=== PATIENT | female | born 1975 | race Hispanic/Latino ===

== ENCOUNTER 2017-10-08 19:23 | Emergency (ER) | payer SELFPAY ==
[2017-10-08 20:16] VITALS: BMI 31.9
--- NOTE | 2017-10-08 20:27 | ED PDOC ---
Arrival/HPI - General Chief Complaint: Upper Extremity Problem/Injury Time Seen by Provider: 10/08/17 20:20 Historian: Patient - History of Present Illness Narrative History of Present Illness (Text): 10/08/17 20:23 42yo female present to Emergency department with complaint of left elbow pain radiating to her upper arm and forearm. She states she fell and landed on her left elbow an hour ago. Notes sharp pain to her elbow. she notes numbness to her left forearm. She did not take any medication. Notes that the fall is mechanical. Denies focal weakness, hitting head anywhere, LOC, any other complaint. Past Medical History - Provider Review Nursing Documentation Reviewed: Yes - Infectious Disease Hx of Infectious Diseases: None - Tetanus Immunization Tetanus Immunization: >10 years Ago - Cardiac Hx Cardiac Disorders: No - Pulmonary Hx Respiratory Disorders: No Other/Comment: hx blood clots - Neurological Hx Neurological Disorder: No - HEENT Hx HEENT Disorder: No - Renal Hx Renal Failure: Yes (Left kidney only) - Endocrine/Metabolic Hx Endocrine Disorders: No - Hematological/Oncological Hx Blood Disorders: Yes Hx Cancer: Yes (skin and breast) - Integumentary Hx Dermatological Disorder: Yes Other/Comment: LE edema, skin Cancer - Musculoskeletal/Rheumatological Hx Musculoskeletal Disorders: No - Gastrointestinal Hx Gastrointestinal Disorders: No - Genitourinary/Gynecological Hx Genitourinary Disorders: Yes Other/Comment: 5 ectopic pregnancies, - Psychiatric Hx Anxiety: Yes Hx Substance Use: No - Surgical History Hx Mastectomy: Yes (DOUBLE) Hx Orthopedic Surgery: Yes (B/L) Hx Tubal Ligation: Yes Other/Comment: double mastectomy with reconstruction and lymphnode removal - Anesthesia Hx Anesthesia: Yes Hx Anesthesia Reactions: No - Suicidal Assessment Feels Threatened In Home Enviroment: No Family/Social History - Physician Review Nursing Documentation Reviewed: Yes Family/Social History: Unknown Family HX Smoking Status: Heavy Smoker > 10 Cigarettes Daily Hx Alcohol Use: Yes Hx Substance Use: No Hx Substance Use Treatment: No Allergies/Home Meds Allergies/Adverse Reactions: Allergies No Known Allergies Allergy (Verified 10/08/17 20:16) Home Medications: Home Meds Medication Instructions Recorded Confirmed diaZEpam [Valium] 10 mg PO QID PRN 04/19/14 07/09/17 oxyCODONE [oxyCONTIN] 30 mg PO Q6 PRN 04/19/14 07/09/17 Furosemide [Lasix] 2 tab PO BID 10/23/16 07/09/17 Aspirin [Ecotrin] 81 mg PO DAILY 07/09/17 07/09/17 Phytonadione (Vit K1) [Vitamin K] 100 mcg PO DAILY 07/09/17 07/09/17 Vitamin B Complex [B Complex] 1 each PO DAILY 07/09/17 07/09/17 Review of Systems - Physician Review All systems were reviewed & negative as marked: Yes - Review of Systems Constitutional: Normal Eyes: Normal ENT: Normal Respiratory: Normal Cardiovascular: Normal Gastrointestinal: Normal Genitourinary Female: Normal Musculoskeletal: Arthralgias (LEft arm/elbow/forearm) Skin: Normal Neurological: Normal Endocrine: Normal Hemo/Lymphatic: Normal Psychiatric: Normal Physical Exam Vital Signs Reviewed: Yes Temperature: Afebrile Blood Pressure: Normal Pulse: Regular Respiratory Rate: Normal Appearance: Positive for: Well-Appearing, Non-Toxic, Comfortable Pain Distress: None Mental Status: Positive for: Alert and Oriented X 3 - Systems Exam Head: Present: Atraumatic, Normocephalic Pupils: Present: PERRL Extroacular Muscles: Present: EOMI Conjunctiva: Present: Normal Mouth: Present: Moist Mucous Membranes Neck: Present: Normal Range of Motion Respiratory/Chest: Present: Clear to Auscultation, Good Air Exchange. No: Respiratory Distress, Accessory Muscle Use Cardiovascular: Present: Regular Rate and Rhythm, Normal S1, S2. No: Murmurs Abdomen: Present: Normal Bowel Sounds. No: Tenderness, Distention, Peritoneal Signs Back: Present: Normal Inspection Upper Extremity: Present: NORMAL PULSES, Tenderness (LEft upper arm/elbow and forearm), Neurovascularly Intact. No: Cyanosis, Edema, Normal ROM (Unable to ascess secondary to pain. Arm in a sling), Swelling, Deformity Lower Extremity: Present: Normal Inspection. No: Edema Neurological: Present: GCS=15, CN II-XII Intact, Speech Normal Skin: Present: Warm, Dry, Normal Color. No: Rashes Psychiatric: Present: Alert, Oriented x 3, Normal Insight, Normal Concentration Medical Decision Making ED Course and Treatment: 10/08/17 21:49 PT in Emergency department for stated history. She was NVI . Radial pulse was intact Left arm xray - Negative for acute fracture/dislocation Arm placed on a sling Result DW the pt DC home with ibuprofen and referred to her PMD. - RAD Interpretation Radiology Orders: 10/08/17 20:20 HUMERUS LEFT [RAD] Stat 10/08/17 20:21 ELBOW LEFT 3 VIEWS ROUTINE [RAD] Stat FOREARM LEFT [RAD] Stat - Medication Orders Current Medication Orders: Discontinued Medications Ibuprofen (Motrin Tab) 800 mg PO STAT STA Stop: 10/08/17 20:24 Disposition/Present on Arrival - Present on Arrival Any Indicators Present on Arrival: No History of DVT/PE: No History of Uncontrolled Diabetes: No Urinary Catheter: No History of Decub. Ulcer: No History Surgical Site Infection Following: None - Disposition Have Diagnosis and Disposition been Completed?: Yes Diagnosis: Knee sprain, Arm injury Disposition: HOME/ ROUTINE Disposition Time: 21:50 Patient Plan: Discharge Condition: STABLE Discharge Instructions (ExitCare): Elbow Sprain (ED) Additional Instructions: Follow up with your doctor/Orthopedist Return to Emergency department for any new or worsening symptoms Prescriptions: Ibuprofen [Motrin Tab] 600 mg PO Q6 #20 tab Referrals: PCP,LUIS EDUARDO [Primary Care Provider] - Follow up with primary Wilbert Stallings MD [Staff Provider] - Follow up with primary Forms: [employer] ([place])
[2017-10-08 22:55] VITALS: BP 145/80; PULSE 75; RESP 18; TEMP 98.6; O2SAT 100
--- NOTE | 2017-10-09 08:34 | RAD ---
PROCEDURE: Radiographs of the left humerus. HISTORY: arm pain s/p trauma COMPARISON: None. FINDINGS: BONES: Normal. No fracture or focal lesion. SOFT TISSUES: Normal. OTHER FINDINGS: None. IMPRESSION: Normal radiographs of left humerus.
--- NOTE | 2017-10-09 08:35 | RAD ---
PROCEDURE: Radiographs of the left elbow. HISTORY: elbow pain s/p trauma COMPARISON: No prior. FINDINGS: BONES: Normal. No fracture. JOINTS: Normal. No osteoarthritis. SOFT TISSUES: Normal. JOINT EFFUSION: None. OTHER FINDINGS: None IMPRESSION: Unremarkable radiographs of the left elbow.
--- NOTE | 2017-10-09 08:36 | RAD ---
PROCEDURE: Radiographs of the Left Forearm HISTORY: arm pain s/p trauma COMPARISON: None available. TECHNIQUE: Frontal and lateral views obtained. FINDINGS: BONES: No fracture or destructive lesion. JOINT SPACES: Unremarkable. OTHER FINDINGS: None. IMPRESSION: Unremarkable radiographs of the left forearm.
== END 2017-10-08 22:38 | disposition home or self-care (01) ==
LOC: ED 19:23
DX: S53.402A Unspecified sprain of left elbow, initial encounter (principal); S83.90XA Sprain of unspecified site of unspecified knee, initial encounter; W01.0XXA Fall on same level from slipping, tripping and stumbling without subsequent striking against object, initial encounter; Y92.009 Unspecified place in unspecified non-institutional (private) residence as the place of occurrence of the external cause

== ENCOUNTER 2018-02-06 00:32 | Emergency (ER) | payer SELFPAY ==
[2018-02-06 00:32] VITALS: BMI 31.9
--- NOTE | 2018-02-06 01:02 | ED PDOC ---
Arrival/HPI - General Chief Complaint: Chest Pain Time Seen by Provider: 02/06/18 00:39 Historian: Patient - History of Present Illness Narrative History of Present Illness (Text): 02/06/18 01:01 42 year old female, whose past medical history includes breast CA and ?renal insufficiency secondary to past chemotherapy, presents to the emergency department for evaluation of decreased urinary output for the past 3 days. Patient states she has not been drinking liquids and is nauseous. She states he feel like she is retaining water. This evening, patient also developed "crushing " chest pain prior to arrival to the ER. Patient is currently without chest pain , but still complaining of nausea. Patient denies any fever, chills, shortness of breath, vomiting, diarrhea, back pain, neck pain, headache, dizziness, or any other complaints. Time/Duration: Other (3 days) Symptom Onset: Gradual Symptom Course: Unchanged Activities at Onset: Light Context: Home Past Medical History - Provider Review Nursing Documentation Reviewed: Yes - Infectious Disease Hx of Infectious Diseases: None - Tetanus Immunization Tetanus Immunization: >10 years Ago - Cardiac Hx Cardiac Disorders: No - Pulmonary Hx Respiratory Disorders: No Other/Comment: hx blood clots - Neurological Hx Neurological Disorder: No - HEENT Hx HEENT Disorder: No - Renal Hx Renal Failure: Yes (Left kidney only) Other/Comment: left kidney at 63% - Endocrine/Metabolic Hx Endocrine Disorders: No - Hematological/Oncological Hx Blood Disorders: Yes Hx Cancer: Yes (skin and breast) Other/Comment: dble mastectomy with reconstruction last chemo 2007 - Integumentary Hx Dermatological Disorder: Yes Other/Comment: LE edema, skin Cancer - Musculoskeletal/Rheumatological Hx Musculoskeletal Disorders: No - Gastrointestinal Hx Gastrointestinal Disorders: No - Genitourinary/Gynecological Hx Genitourinary Disorders: Yes Other/Comment: 5 ectopic pregnancies, - Psychiatric Hx Anxiety: Yes Hx Depression: Yes Hx Substance Use: No - Surgical History Hx Mastectomy: Yes (DOUBLE) Hx Orthopedic Surgery: Yes (B/L) Hx Tubal Ligation: Yes Other/Comment: double mastectomy with reconstruction and lymphnode removal 6 ectopic - Anesthesia Hx Anesthesia: Yes Hx Anesthesia Reactions: No - Suicidal Assessment Feels Threatened In Home Enviroment: No Family/Social History - Physician Review Nursing Documentation Reviewed: Yes Family/Social History: No Known Family HX Smoking Status: Heavy Smoker > 10 Cigarettes Daily Hx Alcohol Use: No Hx Substance Use: No Hx Substance Use Treatment: No Allergies/Home Meds Allergies/Adverse Reactions: Allergies No Known Allergies Allergy (Verified 02/06/18 00:38) Home Medications: Home Meds Medication Instructions Recorded Confirmed No Known Home Med 02/06/18 02/06/18 Review of Systems - Physician Review All systems were reviewed & negative as marked: Yes - Review of Systems Constitutional: absent: Fevers, Other (Chills) Respiratory: absent: SOB Cardiovascular: Chest Pain Gastrointestinal: Nausea. absent: Diarrhea, Vomiting Genitourinary Female: Urine Output Changes (decreased urinary output) Musculoskeletal: absent: Back Pain, Neck Pain Neurological: absent: Headache, Dizziness Physical Exam Vital Signs Reviewed: Yes Vital Signs Temp Pulse Resp BP Pulse Ox 02/06/18 01:23 99.2 F 88 18 119/81 97 Temperature: Afebrile Blood Pressure: Normal Pulse: Regular Respiratory Rate: Normal Appearance: Positive for: Well-Appearing, Non-Toxic, Comfortable Pain Distress: None Mental Status: Positive for: Alert and Oriented X 3 - Systems Exam Head: Present: Atraumatic, Normocephalic Pupils: Present: PERRL Extroacular Muscles: Present: EOMI Conjunctiva: Present: Normal Mouth: Present: Moist Mucous Membranes Neck: Present: Normal Range of Motion Respiratory/Chest: Present: Clear to Auscultation, Good Air Exchange. No: Respiratory Distress, Accessory Muscle Use Cardiovascular: Present: Regular Rate and Rhythm, Normal S1, S2. No: Murmurs Abdomen: No: Tenderness, Distention, Peritoneal Signs Back: Present: Normal Inspection Upper Extremity: Present: Normal Inspection. No: Cyanosis, Edema Lower Extremity: Present: Normal Inspection. No: Edema Neurological: Present: GCS=15, CN II-XII Intact, Speech Normal Skin: Present: Warm, Dry, Normal Color. No: Rashes Psychiatric: Present: Alert, Oriented x 3, Normal Insight, Normal Concentration Medical Decision Making ED Course and Treatment: 02/06/18 01:02 Impression: 42 year old female presents complaining of decreased urinary output for the past 3 days associated with nausea and sudden chest pain prior to arrival. Physical Exam benign. Plan: -- EKG -- Labs -- Chest X-ray -- Pepcid, IV Fluids, Zofran Inj -- Urinary Catheter Insertion -- Reassess and disposition Progress Notes: EKG shows NSR at 87 BPM with sinus arrhythmia. Non-specific ST/T changes. Interpreted by me. 02/06/18 03:14 CXR Impression: As read by me, no acute process. 02/06/18 03:25 Case discussed with Senior Project Accountant and Dr. Danilo Mahoney who is aware and agrees with the plan. Accepts patient into hospitalist service. - Lab Interpretations Lab Results: 02/06/18 01:15 02/06/18 01:15 Lab Results 02/06/18 01:15: Beta HCG, Quant < 2.39 02/06/18 01:15: WBC 9.5, RBC 5.15, Hgb 14.5, Hct 42.1, MCV 81.7, MCH 28.2, MCHC 34.4, RDW 14.0, Plt Count 271, MPV 10.9 02/06/18 01:15: PT 12.8 H, INR 1.12 H, APTT 33.3 02/06/18 01:15: Sodium 145, Potassium 3.5 L, Chloride 109 H, Carbon Dioxide 24, Anion Gap 16, BUN 8, Creatinine 0.6 L, Est GFR ( Amer) > 60, Est GFR (Non -Af Amer) > 60, Random Glucose 99, Calcium 10.1, Total Bilirubin 0.8, AST 20, ALT 19, Alkaline Phosphatase 85, Lactate Dehydrogenase 343, Total Creatine Kinase 20 L, Troponin I < 0.01, NT-Pro-B Natriuret Pep 14.2, Total Protein 7.4, Albumin 4.3, Globulin 3.1, Albumin/Globulin Ratio 1.4, Lipase 37 I have reviewed the lab results: Yes - RAD Interpretation Radiology Orders: 02/06/18 01:01 CHEST PORTABLE [RAD] Stat - EKG Interpretation Interpreted by ED Physician: Yes Type: 12 lead EKG - Medication Orders Current Medication Orders: Famotidine (Pepcid) 40 mg PO HS ENRIQUE Sodium Chloride (Sodium Chloride 0.9%) 1,000 mls @ 100 mls/hr IV .Q10H ENRIQUE Last Admin: 02/06/18 01:22 Dose: 100 mls/hr eMAR Start Stop Document 02/06/18 01:22 CNR (Rec: 02/06/18 01:[address] [facility] [place]-[id number]) Intravenous Solution Start Date 02/06/18 Start Time 01:22 Discontinued Medications Famotidine (Pepcid) 20 mg IVP STAT STA Stop: 02/06/18 01:03 Last Admin: 02/06/18 01:21 Dose: 20 mg IVP Administration Document 02/06/18 01:21 CNR (Rec: 02/06/18 01:21 CNR [id number]) Charges for Administration # of IVP Administrations 1 Sodium Chloride (Sodium Chloride 0.9%) 500 mls @ 500 mls/hr IV .Q1H STA Stop: 02/06/18 04:16 Last Admin: 02/06/18 03:24 Dose: 500 mls/hr eMAR Start Stop Document 02/06/18 03:24 CNR (Rec: 02/06/18 03:24 CNR [id number]) Intravenous Solution Start Date 02/06/18 Start Time 03:24 Ondansetron HCl (Zofran Inj) 4 mg IVP ONCE ONE Stop: 02/06/18 01:03 Last Admin: 02/06/18 01:22 Dose: 4 mg IVP Administration Document 02/06/18 01:22 CNR (Rec: 02/06/18 01:22 CNR [id number]) Charges for Administration # of IVP Administrations 1 Potassium Chloride (K-Dur 20 Meq Er Tab) 20 meq PO ONCE ONE Stop: 02/06/18 04:11 - Scribe Statement The provider has reviewed the documentation as recorded by the Lynn Infante Provider Scribe Attestation: All medical record entries made by the Lynn were at my direction and personally dictated by me. I have reviewed the chart and agree that the record accurately reflects my personal performance of the history, physical exam, medical decision making, and the department course for this patient. I have also personally directed, reviewed, and agree with the discharge instructions and disposition. Disposition/Present on Arrival - Present on Arrival Any Indicators Present on Arrival: No History of DVT/PE: No History of Uncontrolled Diabetes: No Urinary Catheter: No History of Decub. Ulcer: No History Surgical Site Infection Following: None - Disposition Have Diagnosis and Disposition been Completed?: Yes Diagnosis: Chest pain Disposition: HOSPITALIZED Disposition Time: 03:53 Patient Plan: Observation Patient Problems: Current Active Problems Problem Status Onset Chest pain Acute Condition: STABLE
[2018-02-06] MEDS ORDERED: Sodium Chloride 0.9% 1,000 ML IV SCH (01:15)
[2018-02-06 01:24] VITALS: RESP 18
[2018-02-06 01:32] LABS: HEMOGLOBIN 14.5 g/dL (12.0-16.0); MEAN CELL VOLUME 81.7 fl (80.0-105.0); MEAN CORPUSCULAR HEMOGLOBIN 28.2 pg (25.0-35.0); MEAN CORPUSCULAR HGB CONC 34.4 g/dl (31.0-37.0); MEAN PLATELET VOLUME 10.9 fl (7.0-11.0); RBC 5.15 10^6/uL (3.5-6.1); WHITE BLOOD COUNT 9.5 10^3/ul (4.5-11.0)
[2018-02-06 01:38] LABS: INR 1.12 (0.93-1.08); PARTIAL THROMBOPLASTIN TIME 33.3 Seconds (25.1-36.5); PROTHROMBIN TIME 12.8 SECONDS (9.4-12.5)
[2018-02-06 01:41] LABS: ALB/GLOB RATIO 1.4 (1.1-1.8); ALBUMIN 4.3 g/dL (3.0-4.8); ALT/SGPT 19 U/L (7-56); AST/SGOT 20 U/L (14-36); BLOOD UREA NITROGEN 8 mg/dL (7-21); CALCIUM 10.1 mg/dL (8.4-10.5); GFR AFRICAN-AMERICAN > 60; GFR NON-AFRICAN AMERICAN > 60; LIPASE 37 U/L (23-300)
[2018-02-06 01:53] LABS: B-TYPE NATRIURETIC PEPTIDE 14.2 pg/mL (0-450); TROPONIN I < 0.01 ng/mL
[2018-02-06] MEDS ORDERED: Sodium Chloride 0.9% 500 ML IV STA ×2 (03:17→04:30)
[2018-02-06] MEDS ORDERED: Potassium Chloride 20 mEq ER Tab PO ONE (04:10)
--- NOTE | 2018-02-06 06:15 | CP.PCM.HP ---
History of Present Illness - History of Present Illness History of Present Illness: CC: Anuria and chest discomfort HPI: 42 year old female with past medical history of breast cancer s/p bilateral mastectomy with reconstructive surgery, acute renal failure requiring temporary dialysis secondary to chemotherapy who presents complaining of minimal to no urinary output for the past 3 days. Patient reports that she has been drinking limited liquids over the time period. She denies any difficulty starting or stopping her stream, chills, fever, abdominal/suprapubic pain, confusion, shortness of breath. Patient reports having prior episodes of anuria lasting 1 to 2 days. Patient also reports chest discomfort prior to and on arrival to ED. She denied radiation of pain, sweating, nausea, vomiting, or taking any medication for relief of her symptoms. Along with her chest pain patient indicates she had 3+ edema in her lower extremities that has since subsided. Patient is noted to be resting comfortably in bed at time of interview. PMH: Breast CA hx, PTSD, Anxiety PSH: B/L breast mastectomy, Breast reconstructive surgery SOCHX: Tobacco: Denies, ETOH: Denies, ID: Denies ALL: NKDA Meds: HCTZ in past but not taken since 11/2017 PMD: none Urology: Carlos Hernandez Urologist: Denies Present on Admission - Present on Admission Any Indicators Present on Admission: No Review of Systems - Review of Systems All systems: reviewed and no additional remarkable complaints except (as mentioned in hpi) Past Patient History - Infectious Disease Hx of Infectious Diseases: None - Tetanus Immunizations Tetanus Immunization: >10 years Ago - Past Social History Smoking Status: Heavy Smoker > 10 Cigarettes Daily Alcohol: None Drugs: Denies - CARDIAC Hx Cardiac Disorders: No - PULMONARY Hx Respiratory Disorders: No Other/Comment: hx blood clots - NEUROLOGICAL Hx Neurological Disorder: No - HEENT Hx HEENT Problems: No - RENAL Hx Renal Failure: Yes (Left kidney only) Other/Comment: left kidney at 63% - ENDOCRINE/METABOLIC Hx Endocrine Disorders: No - HEMATOLOGICAL/ONCOLOGICAL Hx Blood Disorders: Yes Hx Cancer: Yes (skin and breast) Other/Comment: dble mastectomy with reconstruction last chemo 2007 - INTEGUMENTARY Hx Dermatological Problems: Yes Other/Comment: LE edema, skin Cancer - MUSCULOSKELETAL/RHEUMATOLOGICAL Hx Musculoskeletal Disorders: No - GASTROINTESTINAL Hx Gastrointestinal Disorders: No - GENITOURINARY/GYNECOLOGICAL Hx Genitourinary Disorders: Yes Other/Comment: 5 ectopic pregnancies, - PSYCHIATRIC Hx Anxiety: Yes Hx Depression: Yes Hx Substance Use: No - SURGICAL HISTORY Hx Mastectomy: Yes (DOUBLE) Hx Orthopedic Surgery: Yes (B/L) Hx Tubal Ligation: Yes Other/Comment: double mastectomy with reconstruction and lymphnode removal 6 ectopic - ANESTHESIA Hx Anesthesia: Yes Hx Anesthesia Reactions: No Meds Allergies/Adverse Reactions: Allergies Allergy/AdvReac Type Severity Reaction Status Date / Time No Known Allergies Allergy Verified 02/06/18 00:38 Physical Exam - Constitutional Appears: Non-toxic - Head Exam Head Exam: ATRAUMATIC, NORMAL INSPECTION, NORMOCEPHALIC - Eye Exam Eye Exam: EOMI, PERRL - ENT Exam ENT Exam: Mucous Membranes Moist - Neck Exam Neck exam: Positive for: Full Rom - Respiratory Exam Respiratory Exam: Clear to Auscultation Bilateral, NORMAL BREATHING PATTERN. absent: Rhonchi, Wheezes - Cardiovascular Exam Cardiovascular Exam: REGULAR RHYTHM, +S1, +S2 - GI/Abdominal Exam GI & Abdominal Exam: Normal Bowel Sounds, Soft. absent: Firm, Guarding, Rigid, Tenderness - Extremities Exam Extremities exam: Positive for: normal capillary refill, pedal edema (1+ b/l). Negative for: calf tenderness, tenderness - Back Exam Back exam: absent: CVA tenderness (L), CVA tenderness (R) - Neurological Exam Neurological exam: Alert, CN II-XII Intact, Normal Gait, Oriented x3 - Psychiatric Exam Psychiatric exam: Normal Affect, Normal Mood - Skin Skin Exam: Dry, Warm Results - Vital Signs Recent Vital Signs: Last Vital Signs Temp 99.2 F 02/06/18 01:23 Pulse 88 02/06/18 01:23 Resp 18 02/06/18 01:23 BP 119/81 02/06/18 01:23 Pulse Ox 97 02/06/18 01:23 - Labs Result Diagrams: 02/06/18 01:15 02/06/18 01:15 Labs: Laboratory Results - last 24 hr 02/06/18 02/06/18 02/06/18 01:15 01:15 01:15 WBC 9.5 RBC 5.15 Hgb 14.5 Hct 42.1 MCV 81.7 MCH 28.2 MCHC 34.4 RDW 14.0 Plt Count 271 MPV 10.9 PT 12.8 H INR 1.12 H APTT 33.3 Sodium 145 Potassium 3.5 L Chloride 109 H Carbon Dioxide 24 Anion Gap 16 BUN 8 Creatinine 0.6 L Est GFR ( Amer) > 60 Est GFR (Non-Af Amer) > 60 Random Glucose 99 Calcium 10.1 Total Bilirubin 0.8 AST 20 ALT 19 Alkaline Phosphatase 85 Lactate Dehydrogenase 343 Total Creatine Kinase 20 L Troponin I < 0.01 NT-Pro-B Natriuret Pep 14.2 Total Protein 7.4 Albumin 4.3 Globulin 3.1 Albumin/Globulin Ratio 1.4 Lipase 37 Beta HCG, Quant 02/06/18 01:15 WBC RBC Hgb Hct MCV MCH MCHC RDW Plt Count MPV PT INR APTT Sodium Potassium Chloride Carbon Dioxide Anion Gap BUN Creatinine Est GFR ( Amer) Est GFR (Non-Af Amer) Random Glucose Calcium Total Bilirubin AST ALT Alkaline Phosphatase Lactate Dehydrogenase Total Creatine Kinase Troponin I NT-Pro-B Natriuret Pep Total Protein Albumin Globulin Albumin/Globulin Ratio Lipase Beta HCG, Quant < 2.39 Assessment & Plan - Assessment and Plan (Free Text) Assessment: 42 year old female with past medical history of breast cancer s/p bilateral mastectomy with reconstructive surgery, acute renal failure requiring temporary dialysis secondary to chemotherapy who presents complaining of minimal to no urinary output for the past 3 days. Patient to be admitted for chest pain r/o acs and anuria evaluation. Plan: Anuria - Bladder scan showing 230mL - Renal function stable - Pt received 1.5 Liter in ED - Jones catheter inserted with no urinary output - UA, Urine culture - Continue with fluid hydration - Consider diuretic, reinsertion of jones catheter Chest Pain r/o ACS - initial troponin negative - Trend trop - EKG NSR DVT/ GI ppx - Protonix - Heparin Case and plan discussed with attending - Date & Time Date: 02/06/18 Time: 06:13
--- NOTE | 2018-02-06 08:22 | CP.PCM.PN ---
<Wilma Vallecillo - Last Filed: 02/06/18 08:17> Subjective - Date & Time of Evaluation Date of Evaluation: 02/06/18 Time of Evaluation: 08:17 - Subjective Subjective: PGY-[address] Wong CC: AMA S: Pt was frustrated no urine despite fluid and wanted to leave medical advice. She state she doesn't have primary care doctor. O: AAOx3 Gen: Anxious jones intact, no urine output A/P: AMA - Explained that labs and EKG are normal. Pt was not satisfied, wanted an answer immediately for why no urine output. No willing to wait for an answer/ more testings. Risk and benefit of staying vs AMA discussed, also noted in AMA form. Pt understood. Signed AMA paper. - Given labs and a copy of EKG to patient - Given [facility] info and follow up outpatient Objective - Vital Signs/Intake and Output Vital Signs (last 24 hours): Temp Pulse Resp BP Pulse Ox 99.2 F 88 18 119/81 97 02/06/18 01:23 02/06/18 01:23 02/06/18 01:23 02/06/18 01:23 02/06/18 01:23 - Medications Medications: Current Medications Famotidine (Pepcid) 40 mg PO HS ENRIQUE Sodium Chloride (Sodium Chloride 0.9%) 1,000 mls @ 100 mls/hr IV .Q10H ENRIQUE Last Admin: 02/06/18 01:22 Dose: 100 mls/hr - Labs Labs: PT 12.8 SECONDS (9.4-12.5) H 02/06/18 01:15 INR 1.12 (0.93-1.08) H 02/06/18 01:15 APTT 33.3 Seconds (25.1-36.5) 02/06/18 01:15 <Radha Wong - Last Filed: 02/06/18 17:03> Objective - Vital Signs/Intake and Output Vital Signs (last 24 hours): Temp Pulse Resp BP Pulse Ox 98.6 F 78 18 138/88 98 02/06/18 08:48 02/06/18 08:48 02/06/18 08:48 02/06/18 08:48 02/06/18 08:48 - Labs Labs: 02/06/18 01:15 02/06/18 01:15 PT 12.8 SECONDS (9.4-12.5) H 02/06/18 01:15 INR 1.12 (0.93-1.08) H 02/06/18 01:15 APTT 33.3 Seconds (25.1-36.5) 02/06/18 01:15 Attending/Attestation - Attestation I have personally seen and examined this patient.: No I have fully participated in the care of the patient.: No I have reviewed all pertinent clinical information, including history, physical exam and plan: Yes Notes (Text): 02/06/18 17:03 Attending note; Patient was not seen by me. Patient was in the ER. Admitted last night. Patient signed AGAINST MEDICAL ADVICE before rounds. Resident note noted.
[2018-02-06 08:49] VITALS: BP 138/88; PULSE 78; TEMP 98.6; O2SAT 98
--- NOTE | 2018-02-06 09:36 | RAD ---
HISTORY: chest pain COMPARISON: No prior. FINDINGS: LUNGS: No active pulmonary disease. PLEURA: No significant pleural effusion identified, no pneumothorax apparent. CARDIOVASCULAR: Normal. OSSEOUS STRUCTURES: No significant abnormalities. VISUALIZED UPPER ABDOMEN: Normal. OTHER FINDINGS: None. IMPRESSION: No active disease.
--- NOTE | 2018-02-06 16:52 | CARD ---
APPROVED REPORT EKG Measurement Heart [id number] <Conclusion> Normal sinus rhythm with sinus arrhythmia Possible Left atrial enlargement Borderline ECG
== END 2018-02-06 08:00 | disposition left against medical advice (07) ==
LOC: ED 00:32 → UNDOADMOB 03:53 → ERH 03:53
DX: R07.9 Chest pain, unspecified (principal); N17.9 Acute kidney failure, unspecified; Z85.3 Personal history of malignant neoplasm of breast; Z90.13 Acquired absence of bilateral breasts and nipples; F17.210 Nicotine dependence, cigarettes, uncomplicated
CPT/HCPCS: 71045; 80053; 82550; 83615; 83690; 83880; 84484; 84702; 85027; 85610; 85730; 93005; 96361; 96374; 96375; 99285; J2405; J7040

== ENCOUNTER 2018-03-13 20:24 | Emergency (ER) | payer SELFPAY ==
[2018-03-13] MEDS ORDERED: Sodium Chloride 0.9% 1,000 ML IV STA (20:36)
[2018-03-13 20:40] VITALS: BMI 29.9
--- NOTE | 2018-03-13 20:41 | ED PDOC ---
Arrival/HPI <BruceMina vivar - Last Filed: 03/13/18 22:40> - General Historian: Patient, EMS <Jose Cartagena - Last Filed: 03/14/18 14:15> - General Chief Complaint: Dizziness/Lightheaded Time Seen by Provider: 03/13/18 20:27 - History of Present Illness Narrative History of Present Illness (Text): 03/13/18 20:41 42 year old female, pmh including renal disease but not on dialysis/breast cancer, nkda, biba for syncope x 1 hour. Pt. stated that she's "not feeling well today", went to bathroom to take cold shower, standing and brushing her teeth, noted that she syncope and woke up with the family member around her, struck the lt. posterior head on the shelf with no abrasion or laceration, no night sweat, admits neck pain, no back pain, no numbness or tingling, no slurred speech. No homicidal or suicidal ideation, no auditory or visual hallucination (Jose Cartagena) Past Medical History - Provider Review Nursing Documentation Reviewed: Yes - Infectious Disease Hx of Infectious Diseases: None - Tetanus Immunization Tetanus Immunization: >10 years Ago - Cardiac Hx Cardiac Disorders: No - Pulmonary Hx Respiratory Disorders: No Other/Comment: hx blood clots - Neurological Hx Neurological Disorder: No - HEENT Hx HEENT Disorder: No - Renal Hx Renal Failure: Yes (Left kidney only) Other/Comment: left kidney at 63% - Endocrine/Metabolic Hx Endocrine Disorders: No - Hematological/Oncological Hx Blood Disorders: Yes Hx Cancer: Yes (skin and breast) Other/Comment: dble mastectomy with reconstruction last chemo 2007 - Integumentary Hx Dermatological Disorder: Yes Other/Comment: LE edema, skin Cancer - Musculoskeletal/Rheumatological Hx Musculoskeletal Disorders: No - Gastrointestinal Hx Gastrointestinal Disorders: No - Genitourinary/Gynecological Hx Genitourinary Disorders: Yes Other/Comment: 5 ectopic pregnancies, - Psychiatric Hx Anxiety: Yes Hx Depression: Yes Hx Substance Use: No - Surgical History Hx Mastectomy: Yes (DOUBLE) Hx Orthopedic Surgery: Yes (B/L) Hx Tubal Ligation: Yes Other/Comment: double mastectomy with reconstruction and lymphnode removal 6 ectopic - Anesthesia Hx Anesthesia: Yes Hx Anesthesia Reactions: No - Suicidal Assessment Feels Threatened In Home Enviroment: No <Jose Cartagena - Last Filed: 03/14/18 14:15> Family/Social History - Physician Review Nursing Documentation Reviewed: Yes Family/Social History: Unknown Family HX Smoking Status: Heavy Smoker > 10 Cigarettes Daily Hx Alcohol Use: No Hx Substance Use: No Hx Substance Use Treatment: No <Jose Cartagena - Last Filed: 03/14/18 14:15> Allergies/Home Meds <Mina Barrera - Last Filed: 03/13/18 22:40> <Jose Cartagena - Last Filed: 03/14/18 14:15> Allergies/Adverse Reactions: Allergies No Known Allergies Allergy (Verified 03/13/18 20:48) Review of Systems - Review of Systems Constitutional: absent: Fatigue, Fevers, Night Sweats Eyes: absent: Vision Changes ENT: absent: Hearing Changes Respiratory: absent: SOB, Cough, Sputum Cardiovascular: absent: Chest Pain Gastrointestinal: absent: Abdominal Pain, Nausea, Vomiting Skin: absent: Rash, Pruritis Neurological: Other (+syncope). absent: Headache, Dizziness, Focal Weakness, Speech Changes, Facial Droop Psychiatric: absent: Anxiety, Depression <Jose Cartagena - Last Filed: 03/14/18 14:15> Physical Exam - Systems Exam Head: Present: Tenderness (lt. posterior occcipital), Contusion (lt. posterior occcipital), Swelling (lt. posterior occcipital), Other (no facial bony tenderness or swelling). No: Ecchymosis, Abrasion, Laceration Pupils: Present: PERRL Extroacular Muscles: Present: EOMI Conjunctiva: Present: Normal Ears: Present: NORMAL TM, Normal Canal. No: Erythema Mouth: Present: Moist Mucous Membranes Pharnyx: No: ERYTHEMA, EXUDATE, TONSILS ENLARGED Nose (External): Present: Atraumatic. No: Abrasion, Contusion, Laceration Nose (Internal): Present: Normal Inspection, No Active Bleeding. No: Rhinorrhea , Septal Hematoma, Epistaxis Neck: Present: Normal Range of Motion, Trachea Midline. No: Meningeal Signs, MIDLINE TENDERNESS, Paraspinal Tenderness, Lymphadenopathy Respiratory/Chest: Present: Clear to Auscultation, Good Air Exchange. No: Respiratory Distress, Accessory Muscle Use Cardiovascular: Present: Regular Rate and Rhythm, Normal S1, S2. No: Murmurs Abdomen: No: Tenderness, Distention, Peritoneal Signs, Rebound, Guarding Back: Present: Normal Inspection Upper Extremity: Present: Normal Inspection. No: Cyanosis, Edema Lower Extremity: Present: Normal Inspection. No: Edema Neurological: Present: GCS=15, CN II-XII Intact, Speech Normal, Motor Func Grossly Intact, Gait Normal, Memory Normal Skin: Present: Warm, Dry, Normal Color. No: Rashes Psychiatric: Present: Alert, Oriented x 3, Normal Insight, Normal Concentration <Jose Cartagena - Last Filed: 03/14/18 14:15> Vital Signs Temp Pulse Resp BP Pulse Ox 03/13/18 23:25 98.2 F 89 17 120/82 98 03/13/18 22:50 92 H 18 118/58 L 98 03/13/18 21:02 98.4 F 113 H 18 116/72 100 Medical Decision Making <Mina Barrera - Last Filed: 03/13/18 22:40> - RAD Interpretation Gas Burner Operator: Radiologist - EKG Interpretation Interpreted by ED Physician: Yes Type: 12 lead EKG <Jose Cartagena Q - Last Filed: 03/14/18 14:15> ED Course and Treatment: 03/13/18 20:38 -labs/ua/cardiac enzyme -ekg -cxr -CT head/cervical -IVF -monitoring analyst -Observe and reassess -NIHSS is negative -Orthostatic vital signs: no acute findings. -Beta HCG is negative -EKG: Sinus Tachycardia @ 108 BPM, no ST elevation or depression, no T wave inversion. -CT head No acute findings. -CT cervical The thyroid is enlarged. And questionable nodule in the thyroid. No acute fracture. -Chest xray show no active disease -Labs show no acute findings -Trop is negative -UA show +UTI -UDS is pending -All labs and radiology results discussed with the patient. -I offered admission and further treatment/evaluation including labs/radiology results, pt. refused to stay and got up from the stretcher and walk outside with AMA sign. Pt. didn't wait for the discharge paper and request me to send to her [facility] and [facility]. I will send in [facility] for her. AMA AMA ER The patient refuses to stay in the Emergency Room (ER) to continue the care and wishes to leave the emergency department against my medical advice. Patient was told that staying in the ER is necessary and a full explanation of the reasons why was given, and understood by the patient with alert and oriented x4. The risk of leaving were explained in laymans term and including but not limited to syncope, cardiac arrythemia, sepsis, organ(s) failures, stroke, cerebral vascular disease, pain, worsening of condition, permanent disability and from an undiagnosed or untreated condition. The patient accepts these risks, and is in my judgment is competent and capable of understanding the clinical situation and explanation of the risk of leaving. The patient is able to verbally repeated me back the above explained risks and benefits back to me, and verbally expressed understanding. Patient was given the opportunity to ask questions and change mind. The patient was instructed regarding the best care for the present symptoms, and to follow up as soon as possible with the primary care doctor including specialist or return to the emergency department at any time for continuing care. (Jose Cartagena) - Lab Interpretations Lab Results: 03/13/18 20:48 03/13/18 20:48 Lab Results 03/13/18 23:09: Urine Opiates Screen Negative, Urine Methadone Screen Negative, Ur Barbiturates Screen Negative, Ur Phencyclidine Scrn Negative, Ur Amphetamines Screen Negative, U Benzodiazepines Scrn Negative, U Oth Cocaine Metabols Negative, U Cannabinoids Screen Positive H 03/13/18 23:09: Urine Color Yellow, Urine Appearance Clear, Urine pH 6.0, Ur Specific [place]arts 1.020, Urine Protein Negative, Urine Glucose (UA) Negative, Urine Ketones 15 H, Urine Blood Negative, Urine Nitrate Positive H, Urine Bilirubin Negative, Urine Urobilinogen 0.2, Ur Leukocyte Esterase Negative, Urine RBC Negative, Urine WBC 1 - 3, Ur Epithelial Cells 3 - 4, Urine Bacteria Many, Hyaline Casts 0 - 2 03/13/18 20:48: Alcohol, Quantitative < 10 03/13/18 20:48: WBC 11.9 H D, RBC 5.10, Hgb 14.5, Hct 42.0, MCV 82.4, MCH 28.4, MCHC 34.5, RDW 14.3, Plt Count 338, MPV 10.6, Gran % 65.7, Lymph % (Auto) 28.0, Howard % (Auto) 5.9, Eos % (Auto) 0.3 L, Baso % (Auto) 0.1, Gran # 7.81 H, Lymph # (Auto) 3.3, Howard # (Auto) 0.7 H, Eos # (Auto) 0.0, Baso # (Auto) 0.01 03/13/18 20:48: Beta HCG, Quant < 2.39 03/13/18 20:48: Sodium 142, Potassium 3.6, Chloride 105, Carbon Dioxide 23, Anion Gap 19, BUN 8, Creatinine 0.6 L, Est GFR ( Amer) > 60, Est GFR (Non -Af Amer) > 60, Random Glucose 97, Calcium 9.7, Magnesium 2.0, Total Bilirubin 0.6, AST 16, ALT 17, Alkaline Phosphatase 104, Lactate Dehydrogenase 402, Total Creatine Kinase 23 L, Troponin I < 0.01, Total Protein 7.9, Albumin 4.5, Globulin 3.5, Albumin/Globulin Ratio 1.3 03/13/18 20:39: POC Glucose (mg/dL) 89 - RAD Interpretation Radiology Orders: 03/13/18 20:36 CERVICAL SPINE W/O CONTRAST [CT] Stat HEAD W/O CONTRAST [CT] Stat CHEST PORTABLE [RAD] Stat CT Head: Brain: Unremarkable. No hemorrhage. No significant white matter disease. No edema. Ventricles: Unremarkable. No ventriculomegaly. Bones/joints: Unremarkable. No acute fracture. Soft tissues: Unremarkable. Sinuses: Significant opacification of the bilateral maxillary sinus. Mastoid air cells: Unremarkable as visualized. No mastoid effusion. IMPRESSION: No acute findings. Thank you for allowing us to participate in the care of your patient. Dictated and Authenticated by: Tabitha Hart MD 03/13/2018 10:16 PM Eastern Time ([place] & [place]) CT Cervical: Vertebrae: Straightening of cervical lordosis. Ligamentous stability cannot be evaluated on CT exam. No acute fracture. Discs/spinal canal/neural foramina: Degenerative changes are noted in the neck. Degenerative changes are noted. No spinal canal stenosis. Soft tissues: Unremarkable. Lymph nodes: There are borderline enlarged lymph nodes in the neck. Thyroid: The thyroid is enlarged. And questionable nodule in the thyroid. Lung apices: Unremarkable as visualized. IMPRESSION: The thyroid is enlarged. And questionable nodule in the thyroid. No acute fracture. Findings as above. Thank you for allowing us to participate in the care of your patient. Dictated and Authenticated by: Tabitha Hart MD 03/13/2018 10:20 PM Eastern Time ([place] & [place]) Chest xray: (Jose Cartagena) - EKG Interpretation EKG Interpretation (Text): 03/13/18 20:51 -EKG: Sinus Tachycardia @ 108 BPM, no ST elevation or depression, no T wave inversion. (Jose Cartagena) - Medication Orders Current Medication Orders: Discontinued Medications Sodium Chloride (Sodium Chloride 0.9%) 1,000 mls @ 999 mls/hr IV .Q1H1M STA Stop: 03/13/18 21:36 Last Admin: 03/13/18 21:04 Dose: 999 mls/hr eMAR Start Stop Document 03/13/18 21:04 IT (Rec: 03/13/18 21:05 IT [id number]) Intravenous Solution Start Date 03/13/18 Start Time 21:04 - PA / MANAGER OFFICE SERVICES / Resident Statement CLARE has reviewed & agrees with the documentation as recorded. CLARE has examined the patient and agrees with the treatment plan. <Mina Barrera - Last Filed: 03/13/18 22:40> - PA / MANAGER OFFICE SERVICES / Resident Statement CLARE has reviewed & agrees with the documentation as recorded. CLARE has examined the patient and agrees with the treatment plan. <Jose Cartagena - Last Filed: 03/14/18 14:15> Disposition/Present on Arrival <Mina Barrera - Last Filed: 03/13/18 22:40> - Present on Arrival Any Indicators Present on Arrival: No History of DVT/PE: No History of Uncontrolled Diabetes: No Urinary Catheter: No History of Decub. Ulcer: No History Surgical Site Infection Following: None - Disposition Have Diagnosis and Disposition been Completed?: Yes Disposition Time: 23:24 <Jose Cartagena - Last Filed: 03/14/18 14:15> - Disposition Diagnosis: UTI (urinary tract infection), Syncope, Noncompliance Disposition: AGAINST MEDICAL ADVICE Condition: STABLE Discharge Instructions (ExitCare): Syncope (ED) Prescriptions: Cephalexin [cephalexin] 500 mg PO TID #21 cap Forms: WORK NOTE
[2018-03-13 21:04] LABS: BASO # 0.01 K/mm3 (0.0-2.0); BASO % 0.1 % (0.0-3.0); EOS % 0.3 % (1.5-5.0); GRAN # 7.81 (1.4-6.5); GRAN % 65.7 % (50.0-68.0); HEMOGLOBIN 14.5 g/dL (12.0-16.0); LYMPH # 3.3 (1.2-3.4); MEAN CELL VOLUME 82.4 fl (80.0-105.0); MEAN CORPUSCULAR HEMOGLOBIN 28.4 pg (25.0-35.0); MEAN CORPUSCULAR HGB CONC 34.5 g/dl (31.0-37.0); MEAN PLATELET VOLUME 10.6 fl (7.0-11.0); MONO # 0.7 (0.1-0.6); MONO % 5.9 % (1.0-6.0); RBC 5.1 10^6/uL (3.5-6.1); RED CELL DISTRIBUTION WIDTH 14.3 % (11.5-14.5); WHITE BLOOD COUNT 11.9 10^3/ul (4.5-11.0)
[2018-03-13 21:05] LABS: ALB/GLOB RATIO 1.3 (1.1-1.8); ALBUMIN 4.5 g/dL (3.0-4.8); ALT/SGPT 17 U/L (7-56); AST/SGOT 16 U/L (14-36); BLOOD UREA NITROGEN 8 mg/dL (7-21); CALCIUM 9.7 mg/dL (8.4-10.5); GFR AFRICAN-AMERICAN > 60; GFR NON-AFRICAN AMERICAN > 60
[2018-03-13 21:16] LABS: TROPONIN I < 0.01 ng/mL
[2018-03-13 22:51] VITALS: O2SAT 98
[2018-03-13 23:13] LABS: URINE APPEARANCE CLEAR (CLEAR); URINE BILIRUBIN NEGATIVE (NEGATIVE); URINE BLOOD NEGATIVE (NEGATIVE); URINE COLOR YELLOW (YELLOW); URINE GLUCOSE (UA) NEGATIVE (NEGATIVE); URINE LEUKOCYTE ESTERASE NEGATIVE Leu/uL (NEGATIVE); URINE PROTEIN NEGATIVE mg/dL (<30 mg/dL); URINE UROBILINOGEN 0.2 E.U./dL (<1 E.U./dL)
[2018-03-13 23:16] LABS: URINE BACTERIA MANY (NEG); URINE HYALINE CAST 0 - 2 /hpf; URINE RBC NEGATIVE /hpf (0-2)
[2018-03-13 23:26] VITALS: BP 120/82; PULSE 89; RESP 17; TEMP 98.2
[2018-03-13 23:39] LABS: BARBITURATES, UR NEGATIVE (NEGATIVE); BENZODIAZEPINES, UR NEGATIVE (NEGATIVE); OPIATES, UR NEGATIVE (NEGATIVE); PHENCYCLIDINE, UR NEGATIVE (NEGATIVE)
[2018-03-14] MEDS ORDERED: Albuterol-Ipratrop 3 mg / 0.5 (3 ml) UD ONE (08:24)
--- NOTE | 2018-03-14 09:02 | CT ---
PROCEDURE: CT HEAD WITHOUT CONTRAST. HISTORY: fall, syncope COMPARISON: None available. TECHNIQUE: Axial computed tomography images were obtained through the head/brain without intravenous contrast. Radiation dose: Total exam DLP = 1276.52 mGy-cm. This CT exam was performed using one or more of the following dose reduction techniques: Automated exposure control, adjustment of the mA and/or kV according to patient size, and/or use of iterative reconstruction technique. FINDINGS: HEMORRHAGE: No acute parenchymal, subarachnoid or extra-axial hemorrhage. . BRAIN: No mass effect or edema. No atrophy or chronic microvascular ischemic changes. VENTRICLES: Unremarkable. No hydrocephalus. CALVARIUM: Unremarkable. PARANASAL SINUSES: Mild moderate mucoperiosteal inflammatory changes seen within both maxillary sinuses. Mild mucosal thickening right chamber sphenoid sinus and multiple ethmoid air cells. MASTOID AIR CELLS: Unremarkable as visualized. No inflammatory changes. OTHER FINDINGS: None. IMPRESSION: No acute intracranial hemorrhage.
--- NOTE | 2018-03-14 09:11 | RAD ---
HISTORY: medical clearance COMPARISON: Medical clearance comparison made with prior study 02/06/2018 FINDINGS: LUNGS: Increased coarsened interstitial markings ; rule out sequela of reactive/inflammatory airway disease or viral illness. No focal consolidation. . Rounded/elliptical shaped opacity in the left lung base could represent rib end or nipple shadow artifact PLEURA: No significant pleural effusion identified, no pneumothorax apparent. CARDIOVASCULAR: Normal. OSSEOUS STRUCTURES: No significant abnormalities. VISUALIZED UPPER ABDOMEN: Normal. OTHER FINDINGS: None. IMPRESSION: Increased coarsened interstitial markings ; rule out sequela of reactive/inflammatory airway disease or viral illness. No focal consolidation. . Rounded/elliptical shaped opacity in the left lung base could represent rib end or nipple shadow artifact
--- NOTE | 2018-03-14 10:43 | CT ---
PROCEDURE: CT Cervical Spine without contrast HISTORY: Status post fall with neck pain COMPARISON: None available. TECHNIQUE: Axial computed tomography images were obtained of the cervical spine without the use of intravenous contrast. Coronal and sagittal reformatted images were created and reviewed. Radiation dose: Total exam DLP = NGT acute grade 5 [place] at the puncture spot chest at the L cord of scarring consistent with move the slight satnam see thrombus sleep of UE- 596.72 mGy-cm. This CT exam was performed using one or more of the following dose reduction techniques: Automated exposure control, adjustment of the mA and/or kV according to patient size, and/or use of iterative reconstruction technique. FINDINGS: VERTEBRAE: No acute compression fractures no retropulsed fragments. Vertebral bodies exhibit normal stature on. There is straightening of the normal cervical lordosis which could be due to patient positioning gantry however underlying element of muscle spasm may contribute. DISCS/SPINAL CANAL/NEURAL FORAMINA: Mild mild multilevel degenerative spondylosis. At the C3-C4 level, there is adequate disc height. Minor are overgrown uncovertebral and right-sided facet joint changes are present. There is also small central and bilateral disc bulge that appears to flatten the ventral surface of the thecal sac. Central canal appears marginal to adequate. At the C4-C5 level, there is adequate disc height. Small broad-based disc bulge ridge complex contiguous with prominent uncovertebral joints. Facets also mildly prominent. Central canal and exit foramina adequate. There is mild disc space narrowing seen at the C5-C6 and C6-C7 levels without significant. No disc herniation or significant disc bulge. Central canal and exit foramina adequate. PARASPINAL SOFT TISSUES: Unremarkable. OTHER FINDINGS: There is mildly enlarged left lobe thyroid gland which is heterogeneous in appearance in part due to crossing streak and beam hardening artifact. Followup thyroid ultrasound could be performed for further evaluation. . Significant centrilobular emphysematous changes seen in the lung apices and upper lobes. IMPRESSION: No acute fractures. Minor multilevel degenerative spondylosis as described. Slightly enlarged left lobe thyroid gland with heterogeneous appearance in part due to crossing streak and beam hardening artifact. Thyroid ultrasound followup recommended.
--- NOTE | 2018-03-14 11:52 | CARD ---
APPROVED REPORT EKG Measurement Heart [id number] <Conclusion> Sinus tachycardia Otherwise normal ECG
== END 2018-03-13 23:25 | disposition left against medical advice (07) ==
LOC: ED 20:24
DX: R55 Syncope and collapse (principal); N39.0 Urinary tract infection, site not specified; F17.210 Nicotine dependence, cigarettes, uncomplicated
CPT/HCPCS: 70450; 71045; 72125; 80053; 81001; 82550; 82948; 83615; 83735; 84484; 84702; 85025; 87086; 93005; 99285; G0480; J7030

== ENCOUNTER 2018-03-16 19:19 | Emergency (ER) | payer SELFPAY ==
[2018-03-16 19:44] VITALS: BMI 68.1
--- NOTE | 2018-03-16 20:08 | ED PDOC ---
Arrival/HPI - General Chief Complaint: Female Genitourinary Time Seen by Provider: 03/16/18 19:59 Historian: Patient - History of Present Illness Narrative History of Present Illness (Text): 03/16/18 20:07 This 42 yo female with a pmh anxiety (on Klonopin), ckd, urinary retention, ptsd , presents to this emergency department for urinary retention x 2 days. Patient stated she gets this symptom very often, and tests are often normal as per patient. Patient denies abdominal pain, n/v, dizziness, shortness of breath , chest pain, trauma, rectal bleeding, vaginal discharge, vaginal bleeding, or abnormal gait. Patient appears anxious at this time. Patient denies SI, HI, illegal drug use, paranoia, hallucination, fever, or flank pain. Time/Duration: Other (see hpi) Context: Home Past Medical History - Provider Review Nursing Documentation Reviewed: Yes - Infectious Disease Hx of Infectious Diseases: None - Tetanus Immunization Tetanus Immunization: >10 years Ago - Cardiac Hx Cardiac Disorders: No - Pulmonary Hx Respiratory Disorders: No Other/Comment: hx blood clots - Neurological Hx Neurological Disorder: No - HEENT Hx HEENT Disorder: No - Renal Hx Renal Failure: Yes (Left kidney only) Other/Comment: left kidney at 63% - Endocrine/Metabolic Hx Endocrine Disorders: No - Hematological/Oncological Hx Blood Disorders: Yes Hx Cancer: Yes (skin and breast) Other/Comment: dble mastectomy with reconstruction last chemo 2007 - Integumentary Hx Dermatological Disorder: Yes Other/Comment: LE edema, skin Cancer - Musculoskeletal/Rheumatological Hx Musculoskeletal Disorders: No - Gastrointestinal Hx Gastrointestinal Disorders: No - Genitourinary/Gynecological Hx Genitourinary Disorders: Yes Other/Comment: 5 ectopic pregnancies, - Psychiatric Hx Anxiety: Yes Hx Depression: Yes Hx Substance Use: No - Surgical History Hx Mastectomy: Yes (DOUBLE) Hx Orthopedic Surgery: Yes (B/L) Hx Tubal Ligation: Yes Other/Comment: double mastectomy with reconstruction and lymphnode removal 6 ectopic - Anesthesia Hx Anesthesia: Yes Hx Anesthesia Reactions: No - Suicidal Assessment Feels Threatened In Home Enviroment: No Family/Social History - Physician Review Nursing Documentation Reviewed: Yes Family/Social History: Other (noncontributory) Smoking Status: Heavy Smoker > 10 Cigarettes Daily Hx Alcohol Use: No Hx Substance Use: No Hx Substance Use Treatment: No Allergies/Home Meds Allergies/Adverse Reactions: Allergies No Known Allergies Allergy (Verified 03/13/18 20:48) Review of Systems - Review of Systems Constitutional: Normal. absent: Fatigue, Weight Change, Fevers Eyes: Normal ENT: Normal Respiratory: Normal. absent: SOB, Cough Cardiovascular: Normal. absent: Chest Pain, Palpitations Gastrointestinal: Normal. absent: Abdominal Pain, Nausea, Vomiting Genitourinary Female: Dysuria, Other (see hpi). absent: Frequency, Hematuria, Vaginal Bleeding, Vaginal Discharge Musculoskeletal: Normal Skin: Normal Neurological: Normal Endocrine: Normal Hemo/Lymphatic: Normal Psychiatric: Anxiety, Other (refused PES evaluation). absent: Depression, Suicidal Ideation Physical Exam Vital Signs Temp Pulse Resp BP Pulse Ox 03/16/18 23:06 98.1 F 84 18 124/76 100 03/16/18 23:00 98.1 F 84 18 124/76 100 03/16/18 21:39 92 H 18 99 03/16/18 19:51 98.2 F 111 H 12 136/72 99 Temperature: Afebrile Blood Pressure: Normal Pulse: Tachycardic Respiratory Rate: Normal Appearance: Positive for: Well-Appearing, Non-Toxic, Comfortable Pain Distress: None Mental Status: Positive for: Alert and Oriented X 3 - Systems Exam Head: Present: Atraumatic, Normocephalic Pupils: Present: PERRL Extroacular Muscles: Present: EOMI Conjunctiva: Present: Normal Mouth: Present: Moist Mucous Membranes Neck: Present: Normal Range of Motion Respiratory/Chest: Present: Clear to Auscultation, Good Air Exchange. No: Respiratory Distress, Accessory Muscle Use Cardiovascular: Present: Regular Rate and Rhythm, Normal S1, S2. No: Murmurs Abdomen: No: Tenderness, Distention, Peritoneal Signs, Rebound, Guarding Genitourinary/Pelvic Exam: Present: Other (deferred) Back: Present: Normal Inspection. No: CVA Tenderness, Midline Tenderness, Paraspinal Tenderness, Pain with Leg Raise Upper Extremity: Present: Normal Inspection. No: Cyanosis, Edema Lower Extremity: Present: Normal Inspection. No: Edema Neurological: Present: GCS=15, CN II-XII Intact, Speech Normal, Motor Func Grossly Intact, Normal Sensory Function, Normal Cerebellar Funct, Gait Normal, Memory Normal Skin: Present: Warm, Dry, Normal Color. No: Rashes Psychiatric: Present: Alert, Oriented x 3, Normal Insight, Normal Concentration , Anxious. No: Suicidal Ideation, Homicidal Ideation, Delusional, Hallucinations, Intoxicated Medical Decision Making ED Course and Treatment: 03/16/18 22:55 Patient remained stable during the course of emergency department visit. Patient is afebrile. Urinalysis shown no Leuk. However, I will recommend Keflex, since last Urinalysis was positive. Patient feels better, and since the Urinalysis was negative, she does not want to have CT scan. Patient has been voiding normally during the ED stay. Patient admits urinary retention has resolved. I agreed with patient to be d/c home since patient is asymptomatic. I recommended patient to return to emergency department if she develops fever or worsening of symptoms. Re-evaluation Time: 23:00 Reassessment Condition: Re-examined, Improved - Lab Interpretations Microbiology Results: Microbiology Results 03/16/18 22:00 Urine Urine Culture - Final No Growth (<1,000 CFU/ML) Lab Results: 03/16/18 20:25 03/16/18 20:25 Lab Results 03/16/18 22:00: Urine Color Yellow, Urine Appearance Clear, Urine pH 5.5, Ur Specific [place] >= 1.030, Urine Protein Trace H, Urine Glucose (UA) Negative, Urine Ketones Negative, Urine Blood Negative, Urine Nitrate Negative, Urine Bilirubin Negative, Urine Urobilinogen 1.0 H, Ur Leukocyte Esterase Negative, Urine RBC 0 - 2, Urine WBC 1 - 3, Ur Epithelial Cells 1 - 3, Urine Bacteria Trace, Urine HCG, Qual Negative 03/16/18 20:25: Sodium 144, Potassium 3.7, Chloride 106, Carbon Dioxide 23, Anion Gap 19, BUN 13, Creatinine 0.6 L, Est GFR ( Amer) > 60, Est GFR ( Non-Af Amer) > 60, Random Glucose 106, Calcium 9.8, Total Bilirubin 0.9, AST 17 , ALT 15, Alkaline Phosphatase 86, Total Protein 7.6, Albumin 4.3, Globulin 3.3 , Albumin/Globulin Ratio 1.3 03/16/18 20:25: WBC 12.3 H, RBC 4.76, Hgb 13.5, Hct 39.2, MCV 82.4, MCH 28.4, MCHC 34.4, RDW 14.3, Plt Count 323, MPV 10.6, Gran % 64.0, Lymph % (Auto) 25.5, Ware % (Auto) 9.7 H, Eos % (Auto) 0.6 L, Baso % (Auto) 0.2, Gran # 7.86 H, Lymph # (Auto) 3.1, Ware # (Auto) 1.2 H, Eos # (Auto) 0.1, Baso # (Auto) 0.03 I have reviewed the lab results: Yes Interpretation: No sign. chg./baseline (mild leukocytosis) - Medication Orders Current Medication Orders: Discontinued Medications Diazepam (Valium) 5 mg PO ONCE ONE PRN Reason: Protocol Stop: 03/16/18 20:12 Last Admin: 03/16/18 20:26 Dose: 5 mg Sodium Chloride (Sodium Chloride 0.9%) 1,000 mls @ 999 mls/hr IV .Q1H1M STA Stop: 03/16/18 21:10 Last Admin: 03/16/18 20:26 Dose: 999 mls/hr eMAR Start Stop Document 03/16/18 20:26 PADMINI (Rec: 03/16/18 20:27 [facility]ADMINI [id number] Intravenous Solution Start Date 03/16/18 Start Time 20:26 End Date 03/16/18 End time 21:26 Total Infusion Time 60 Ceftriaxone Sodium (Rocephin 1 Gram Ivpb) 1 gm in 100 mls @ 200 mls/hr IVPB STAT STA PRN Reason: Protocol Stop: 03/16/18 20:41 Last Admin: 03/16/18 20:26 Dose: 200 mls/hr eMAR Start Stop Document 03/16/18 20:26 PADMINI (Rec: 03/16/18 20:26 PADMINI [id number] Intravenous Solution Start Date 03/16/18 Start Time 20:26 End Date 03/16/18 End time 20:56 Total Infusion Time 30 Sodium Chloride (Sodium Chloride 0.9%) 1,000 mls @ 999 mls/hr IV .Q1H1M STA Stop: 03/16/18 22:37 Disposition/Present on Arrival - Present on Arrival Any Indicators Present on Arrival: No History of DVT/PE: No History of Uncontrolled Diabetes: No Urinary Catheter: No History of Decub. Ulcer: No History Surgical Site Infection Following: None - Disposition Have Diagnosis and Disposition been Completed?: Yes Diagnosis: Urinary tract infection Disposition: HOME/ ROUTINE Disposition Time: 23:04 Patient Plan: Discharge Condition: IMPROVED Discharge Instructions (ExitCare): Urinary Tract Infection, Adult (DC) Additional Instructions: Call private doctor office for follow up visit in 1-2 days. Take medication as instructed. Return to emergency if symptoms. Prescriptions: Cephalexin [cephalexin] 500 mg PO BID #[id number] Referrals: [facility] [Outside] - Follow up with primary [facility] [Outside] - Follow up with primary Forms: [employer] (Telugu), WORK NOTE
[2018-03-16] MEDS ORDERED: Sodium Chloride 0.9% 1,000 ML IV STA ×2 (20:10→21:37)
[2018-03-16] MEDS ORDERED: cefTRIAXone 1 gm 1 GM/100 ML BAG IVPB STA (20:12)
[2018-03-16 20:31] LABS: BASO # 0.03 K/mm3 (0.0-2.0); BASO % 0.2 % (0.0-3.0); EOS # 0.1 (0.0-0.7); EOS % 0.6 % (1.5-5.0); GRAN # 7.86 (1.4-6.5); HEMOGLOBIN 13.5 g/dL (12.0-16.0); LYMPH # 3.1 (1.2-3.4); LYMPH % 25.5 % (22.0-35.0); MEAN CELL VOLUME 82.4 fl (80.0-105.0); MEAN CORPUSCULAR HEMOGLOBIN 28.4 pg (25.0-35.0); MEAN CORPUSCULAR HGB CONC 34.4 g/dl (31.0-37.0); MEAN PLATELET VOLUME 10.6 fl (7.0-11.0); MONO # 1.2 (0.1-0.6); MONO % 9.7 % (1.0-6.0); RBC 4.76 10^6/uL (3.5-6.1); RED CELL DISTRIBUTION WIDTH 14.3 % (11.5-14.5); WHITE BLOOD COUNT 12.3 10^3/ul (4.5-11.0)
[2018-03-16 20:39] LABS: ALB/GLOB RATIO 1.3 (1.1-1.8); ALBUMIN 4.3 g/dL (3.0-4.8); ALT/SGPT 15 U/L (7-56); AST/SGOT 17 U/L (14-36); BLOOD UREA NITROGEN 13 mg/dL (7-21); CALCIUM 9.8 mg/dL (8.4-10.5); GFR NON-AFRICAN AMERICAN > 60
[2018-03-16 21:40] VITALS: RESP 18
[2018-03-16 22:10] LABS: PH,URINE 5.5 (4.7-8.0); URINE BILIRUBIN NEGATIVE (NEGATIVE); URINE BLOOD NEGATIVE (NEGATIVE); URINE GLUCOSE (UA) NEGATIVE (NEGATIVE); URINE LEUKOCYTE ESTERASE NEGATIVE Leu/uL (NEGATIVE); URINE PROTEIN TRACE mg/dL (<30 mg/dL)
[2018-03-16 22:11] LABS: URINE APPEARANCE CLEAR (CLEAR); URINE COLOR YELLOW (YELLOW)
[2018-03-16 22:25] LABS: HCG,QUALITATIVE URINE NEGATIVE (NEGATIVE); URINE BACTERIA TRACE (NEG); URINE RBC 0 - 2 /hpf (0-2)
[2018-03-17 04:33] VITALS: BP 124/76; PULSE 84; TEMP 98.1; O2SAT 100
== END 2018-03-16 23:06 | disposition home or self-care (01) ==
LOC: ED 19:19
DX: N39.0 Urinary tract infection, site not specified (principal); F17.210 Nicotine dependence, cigarettes, uncomplicated; N18.9 Chronic kidney disease, unspecified
CPT/HCPCS: 80053; 81001; 84703; 85025; 87086; 96365; 99283; J0696; J7030